=== PATIENT | female | born 1995 | race Asian ===

== ENCOUNTER 2022-10-22 11:27 | Emergency (ER) | payer BC ==
[2022-10-22 11:56] VITALS: RESP 18
--- NOTE | 2022-10-22 12:19 | XR ---
EXAMINATION TYPE: XR ankle complete LT DATE OF EXAM: 10/22/2022 12:15 PM INDICATION: Patient age:Female; 27 years old; Reason for study: pain; COMPARISON: None TECHNIQUE: The left ankle is imaged in frontal, lateral and oblique projections. FINDINGS: There is no evidence of acute osseous pathology. The joint spaces are well-preserved without evidenc e of subluxation or dislocation. Kager's fat pad is intact. Mild soft tissue swelling around the ankl e. No radiopaque foreign bodies are identified. IMPRESSION: 1. No evidence of acute fracture. 2. Subcutaneous swelling around the ankle likely secondary to underlying soft tissue injury.
--- NOTE | 2022-10-22 13:27 | ED ---
General Adult HPI - General Chief complaint: Extremity Injury, Lower Stated complaint: twisted ankle Time Seen by Provider: 10/22/22 12:20 Source: patient, family, RN notes reviewed, old records reviewed Mode of arrival: wheelchair Limitations: no limitations - History of Present Illness Initial comments: Patient is a 27-year-old female who presents emergency Department complaining of left ankle pain after an injury. Was playing tennis when she planted her left distal foot on the ground to run forward with force which then prompted sudden pain in the posterior right heel. States she did not feel a pop but may have felt something different that she is having a hard time explaining. Has had pain kind of generalized over the ankle but mostly over the posterior medial aspect. Decreased strength with plantar flexion. Pain with plantar flexion and dorsiflexion. Pain with weightbearing. Presents for further evaluation at this time. Nuys any sensory deficits. Denies any skin changes or other injuries. Has no significant past medical history. Denies any ALLERGIES. Presents for further evaluation.Do not hit her head. Did not fall. Did not lose consciousness. She is not on blood thinners. - Related Data Home Medications Medication Instructions Recorded Confirmed No Known Home Medications 10/22/22 10/22/22 Allergies Allergy/AdvReac Type Severity Reaction Status Date / Time No Known Allergies Allergy Verified 10/22/22 11:56 Review of Systems ROS Statement: Those systems with pertinent positive or pertinent negative responses have been documented in the HPI. Review of Systems: CONST: Denies fever EYES: Denies blurry vision ENT: Denies nasal congestion C/V: Denies Chest pain RESP: Denies shortness of breath GI: Denies abdominal pain : Denies dysuria SKIN: Denies rash. MSK: Endorses left ankle pain NEURO: Denies headache ROS Other: All systems not noted in ROS Statement are negative. Past Medical History Past Medical History: No Reported History History of Any Multi-Drug Resistant Organisms: None Reported Past Surgical History: Orthopedic Surgery Additional Past Surgical History / Comment(s): elbow Past Psychological History: No Psychological Hx Reported Smoking Status: Never smoker Past Alcohol Use History: None Reported Past Drug Use History: None Reported General Exam - General Exam Comments Initial Comments: General: Appears in no acute distress. HEAD: Normal with no signs of head trauma. EYES: EOMI. ENT: Hearing grossly intact. RESPIRATORY: No respiratory distress. C/V: Regular rate and rhythm. Distal left PT and DP pulses within normal limits. ABD: Abdomen is nondistended. EXT: Tenderness located over the posterior left Achilles tendon distally. Seems to be more medial pain on palpation versus lateral pain. However seems to have some mild less fullness in the left lateral distal Achilles tendon. Cannot rule out partial tear. No obvious coiling of the tendon to suggest full rupture. Does have some plantar and dorsiflexion but pain with movement the site of the distal Achilles tendon. No obvious tenderness over the medial or lateral malleoli. No foot tenderness to palpation. No other obvious injury. Neurovascular intact. SKIN: No rashes or lesions observed on exposed skin. NEURO: Alert and oriented. Limitations: no limitations Course Vital Signs 10/22/22 11:54 Temperature 98.3 F Pulse Rate 78 Respiratory 18 Rate Blood Pressure 147/75 O2 Sat by Pulse 99 Oximetry Medical Decision Making - Medical Decision Making Was pt. sent in by a medical professional or institution (, PA, VEHICLE TECHNICIAN, urgent care, hospital, or usp...) When possible be specific @ -No Did you speak to anyone other than the patient for history (EMS, parent, family, police, friend...)? What history was obtained from this source @ -Yes, patient's father who is a physician and aids with much of the history including the exam he performed at home Did you review nursing and triage notes (agree or disagree)? Why? @ -I reviewed and agree with nursing and triage notes Were old charts reviewed (outside hosp., previous admission, EMS record, old EKG, old radiological studies, urgent care reports/EKG's, usp records)? Report findings @ -No old charts were reviewed Differential Diagnosis (chest pain, altered mental status, abdominal pain women, abdominal pain men, vaginal bleeding, weakness, fever, dyspnea, syncope, headache, dizziness, GI bleed, back pain, seizure, CVA, palpatations, mental health, musculoskeletal)? @ -Achilles tendon strain or sprain, Achilles tendon rupture. Ankle fracture. This list is not all-inclusive. EKG interpreted by me (3pts min.). @ -None done X-rays interpreted by me (1pt min.). @ -X-ray showed generalized ankle swelling but no obvious bony traumatic injury. CT interpreted by me (1pt min.). @ -None done U/S interpreted by me (1pt. min.). @ -None done What testing was considered but not performed or refused? (CT, X-rays, U/S, labs)? Why? @ -None What meds were considered but not given or refused? Why? @ -None Did you discuss the management of the patient with other professionals (professionals i.e. , PA, VEHICLE TECHNICIAN, lab, RT, psych nurse, certified social workers in health care, venture capital analyst, teacher, parking enforcement officer, piano case maker)? Give summary @ -No Was smoking cessation discussed for >3mins.? @ -No Was critical care preformed (if so, how long)? @ -No Were there social determinants of health that impacted care today? How? (Homelessness, low income, unemployed, alcoholism, drug addiction, transportation, low edu. Level, literacy, decrease access to med. care, snf, rehab)? @ -No Was there de-escalation of care discussed even if they declined (Discuss DNR or withdrawal of care, Hospice)? DNR status @ -No What co-morbidities impacted this encounter? (DM, HTN, Smoking, COPD, CAD, Cancer, CVA, ARF, Chemo, Hep., AIDS, mental health diagnosis, sleep apnea, morbid obesity)? @ -None Was patient admitted / discharged? Hospital course, mention meds given and route, prescriptions, significant lab abnormalities, going to OR and other pertinent info. @ -Based on the patient's presentation and physical exam, I'm concerned with an Achilles tendon injury but cannot rule out ankle injury. X-ray was ordered in triage and was unremarkable. Some generalized swelling but no obvious focal t raumatic injury. I did discuss this with the patient as well as her family. Bedside ultrasound was inconclusive by myself. Therefore we will splint the patient and plantar flexion, and provide crutches with strict follow-up instructions with orthopedics to evaluate for possible Achilles tendon injury. They were in agreement this plan. Discussed being nonweightbearing. Discussed rest, icing, elevation. Use [id number] analgesia medications at home. Strict return precautions discussed. Patient was placed in a posterior mold splint, and had intact pulses and sensation following the splinting. She was in agreement this plan. Strict return precautions discussed. I instructed the patient to follow up with their PCP in the next 1-3 days. I provided contact information for follow up with orthopedics. I explained that the patient should return to the emergency department if they experience any worsening symptoms. Strict return precautions were discussed with the patient. The patient expressed understanding of these instructions. I answered all questions that the patient had. The patient was discharged home in good condition with their prescriptions and follow up information. Undiagnosed new problem with uncertain prognosis? @ -No Drug Therapy requiring intensive monitoring for toxicity (Heparin, Nitro, Insulin, Cardizem)? @ -No Were any procedures done? @ -No Diagnosis/symptom? @ -Achilles tendon injury/sprain Acute, or Chronic, or Acute on Chronic? @ -Acute Uncomplicated (without systemic symptoms) or Complicated (systemic symptoms)? @ -Uncomplicated Side effects of treatment? @ -No Exacerbation, Progression, or Severe Exacerbation? @ -No Poses a threat to life or bodily function? How? (Chest pain, USA, MS, pneumonia, PE, COPD, DKA, ARF, appy, cholecystitis, CVA, Diverticulitis, Homicidal, Suicidal, threat to staff... and all critical care pts) @ -No Disposition Clinical Impression: Strain of left Achilles tendon Disposition: HOME SELF-CARE Condition: Good Instructions (If sedation given, give patient instructions): Crutch Instructions (ED), Achilles Tendinitis (ED) Is patient prescribed a controlled substance at d/c from ED?: No Referrals: Peterson Gomes MD [Primary Care Provider] - 1-2 days Leila Sanchez DO [Doctor of Osteopathic Medicine] - 1-2 days Time of Disposition: 13:27
[2022-10-22 13:45] VITALS: BP 142/75; PULSE 76; TEMP 98
== END 2022-10-22 13:45 | disposition home or self-care (01) ==
LOC: EC 11:27
DX: S86.012A Strain of left Achilles tendon, initial encounter (principal); X58.XXXA Exposure to other specified factors, initial encounter; Y93.73 Activity, racquet and hand sports
CPT/HCPCS: 99283

== ENCOUNTER → 2024-03-09 | Outpatient (CLI) | payer BC ==
[2024-03-10 06:40] LABS: HCT 40.6 % (37.2-46.3); HGB 13.7 g/dL (12.0-15.0); MCH 30.4 pg (27.0-32.0); MCHC 33.7 g/dL (32.0-37.0); MCV 90.2 FL (80.0-97.0); NRBC Per 100 WBC 0 X 10*3/uL (0.00-0.01); Platelet Count 323 X 10*3/uL (140-440); RDW 12.4 % (11.5-14.5)
[2024-03-10 07:06] LABS: Insulin Level 30.5 mIU/mL (3.0-25.0)
[2024-03-10 07:14] LABS: ALT 21 U/L (8-44); AST 16 U/L (13-35); Albumin 4.3 g/dL (3.8-4.9); Albumin/Globulin Ratio 1.79 Ratio (1.60-3.17); Alkaline Phosphatase 72 U/L (41-126); BUN/Creat Ratio 13.56 Ratio (12.00-20.00); Blood Urea Nitrogen 12.2 mg/dL (9.0-27.0); Calcium 9.3 mg/dL (8.7-10.3); Carbon Dioxide 26.2 mmol/L (21.6-31.8); Chloride 102 mmol/L (96-109); Chol/HDL Ratio 4.04 Ratio; Globulin 2.4 g/dL (1.6-3.3); Glucose 82 mg/dL (70-110); LDL Cholesterol,Calculated 107.1 mg/dL (0.0-131.0); Potassium 4.6 mmol/L (3.5-5.5); Sodium 140 mmol/L (135-145); Total Bilirubin 0.5 mg/dL (0.3-1.2); Total Protein 6.7 g/dL (6.2-8.2)
[2024-03-10 08:22] LABS: T4, Free (Free Thyroxine) 0.92 ng/dL (0.80-1.80)
== END | disposition home or self-care (01) ==
LOC: LABWHC1 09:33
PROVIDERS: ATTEND Internal Medicine Clinical Cardiac Electrophysiology
DX: R63.5 Abnormal weight gain (principal)
CPT/HCPCS: 36415; 80053; 80061; 82533; 82947; 83525; 84436; 84439; 84443; 84480; 84481; 85027